=== PATIENT | male | born 2000 | race Caucasian/White ===

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

== ENCOUNTER 2025-05-24 18:44 | Emergency (ER) | payer SELFPAY ==
[2025-05-24 19:28] VITALS: BP 160/103; PULSE 87
== END 2025-05-24 20:00 | disposition left against medical advice (07) ==
LOC: JP.ED 18:44
DX: Z53.21 Procedure and treatment not carried out due to patient leaving prior to being seen by health care provider (principal)